=== PATIENT | female | born 1980 | race African-American/Black ===

== ENCOUNTER 2018-06-08 03:49 | Emergency (ER) | payer BC, SELFPAY ==
[2018-06-08] MEDS ORDERED: Ibuprofen 800 MG TAB ONE (04:13)
== END 2018-06-08 05:31 | disposition home or self-care (01) ==
LOC: ERS 03:49
DX: J02.9 Acute pharyngitis, unspecified (principal)
CPT/HCPCS: 87081; 87430; 87804; 99283

== ENCOUNTER 2020-10-23 08:56 | Emergency (ER) | payer SELFPAY ==
[2020-10-23] MEDS ORDERED: Acetaminophen 500 MG TAB ONE (09:59)
[2020-10-23] MEDS ORDERED: Cephalexin 250 MG CAP ONE (09:59)
== END 2020-10-23 10:07 | disposition home or self-care (01) ==
LOC: ERS 08:56
DX: J34.0 Abscess, furuncle and carbuncle of nose (principal)
CPT/HCPCS: 99283

== ENCOUNTER → 2021-03-11 | Emergency (ER) | payer OTHER | LOC: ERS 20:05 | DX: S60.511A Abrasion of right hand, initial encounter (principal); S60.811A Abrasion of right wrist, initial encounter; M54.5 Low back pain; M79.671 Pain in right foot; W01.0XXA Fall on same level from slipping, tripping and stumbling without subsequent striking against object, initial encounter ==

== ENCOUNTER 2022-08-19 07:28 | Emergency (ER) | payer OTHER, SELFPAY | END 2022-08-19 09:36 | disposition home or self-care (01) | LOC: ERS 07:28 | DX: R05.9 Cough, unspecified (principal) | CPT/HCPCS: 71045 ==